=== PATIENT | female | born 2000 | race Caucasian/White ===

== ENCOUNTER 2025-03-13 21:25 | Emergency (ER) | payer BC, SELFPAY ==
--- NOTE | 2025-03-13 22:38 | PC.NURSE ---
No answer when pt called to be triaged
== END 2025-03-13 23:16 | disposition left against medical advice (07) ==
PROVIDERS: Emergency Provider Emergency Medicine

== ENCOUNTER → 2025-03-14 08:15 | Outpatient (CLI) | payer BC, SELFPAY | PROVIDERS: Visit Provider Chiropractor | DX: R39.9 Unspecified symptoms and signs involving the genitourinary system (principal) | CPT/HCPCS: 87086 ==

== ENCOUNTER → 2025-09-09 15:21 | Outpatient (CLI) | payer BC, SELFPAY ==
[2025-09-09 18:00] LABS: Appearance Urine UA CLEAR; Bilirubin Urine UA NEGATIVE (NEGATIVE); Color Urine UA YELLOW; Glucose Urine UA NEGATIVE (Negative); Ketones Urine UA NEGATIVE (NEGATIVE); Leukocyte Esterase Urine UA NEGATIVE (NEGATIVE); Nitrite Urine UA NEGATIVE (Negative); Occult Blood Urine UA NEGATIVE (Negative); Protein Urine UA NEGATIVE (Negative); Specific Gravity Urine UA <=1.005 (1.000-1.035); Urobilinogen Urine UA 0.2 E.U./dL (0.2)
[2025-09-09 18:01] LABS: pH Urine UA 6.0 (4.5-8.0)
[2025-09-09 18:17] LABS: Culture Indicated Urine Cult Not Indicated
== END ==
PROVIDERS: PCP Physician Assistant; Visit Provider Obstetrics & Gynecology Gynecology
DX: Z01.419 Encounter for gynecological examination (general) (routine) without abnormal findings (principal); N30.10 Interstitial cystitis (chronic) without hematuria
CPT/HCPCS: 81001

== ENCOUNTER → 2025-09-25 13:17 | Outpatient (CLI) | payer BC, SELFPAY ==
--- NOTE | 2025-09-25 13:18 | DI.MRI.S_ITS ---
PROCEDURE: MR LUMBAR SPINE WO/W CON INDICATIONS: numbness of lle TECHNIQUE: Noncontrast sagittal T1 spin echo and T2 fast echo, sagittal STIR, and T2 fast spin echo through the lumbar spine. In cases with scoliosis, additional coronal T2 fast spin echo may be performed. COMPARISON: None. FINDINGS: Image quality: Excellent. Alignment and Curvature: There is normal bony alignment. Bone Marrow: Marrow is of normal overall signal. No acute vertebral body compression fractures. Spinal Cord: Conus medullaris terminates at the L1 level. Visualized cord demonstrates normal signal and size. Paraspinous Soft Tissues: No paravertebral masses. T12-L1: Normal appearance. L1-L2: Normal appearance. L2-L3: Normal appearance. L3-L4: Normal appearance. L4-L5: Normal appearance. L5-S1: Normal appearance. IMPRESSION: Unremarkable MRI lumbar spine. No stenosis Approved by: Kong Ruiz M.D. on 09/25/2025 at 16:00
== END ==
LOC: MRI 13:18
PROVIDERS: PCP Physician Assistant; Referring Provider Physician Assistant; Visit Provider Physician Assistant
DX: R20.0 Anesthesia of skin (principal); R29.818 Other symptoms and signs involving the nervous system
CPT/HCPCS: 72158; A9579